=== PATIENT | male | born 1980 | race Two or more races ===

== ENCOUNTER 2020-06-10 06:53 | Day surgery (SDC) | payer OTHER ==
[2020-06-10] VITALS (8 sets, daily range): BP systolic 116–144; BP diastolic 72–88
[~2020-06-10] VITALS: Ht 177.8 cm; Wt 116.1 kg
[~2020-06-10 06:53] MED LIST: OMEPRAZOLE40 M1 ORAL; PROBIOTIC1 EAC2 PO
--- NOTE | 2020-06-10 07:10 | Short Stay Surgery H&P ---
History of Present Illness History of Present Illness Chief Complaint Abdominal and epigastric pains and heartburn HPI Yrn Green is a 40 year old male who was admitted on for Gerd/ abdominal pains Patient History Allergies: Coded Allergies: No Known Allergies (Unverified , 06/05/20) Past Surgeries: (1) History of ankle surgery (2) History of ventral hernia repair Medication History Scheduled Lactobacillus Acidophilus (Probiotic), 1 EACH PO DAILY, (Reported) Omeprazole (Omeprazole), 40 MG ORAL DAILY, (Reported) Review of Systems Cardiovascular: Reports: no symptoms Respiratory: Reports: no symptoms Skeletal: Reports: trauma Gastrointestinal: Reports: gastro esophageal reflux disease Genitourinary: Reports: no symptoms Neurologic: Reports: no symptoms Endocrine: Reports: no symptoms Hematologic: Reports: no symptoms Physical Exam Skin: normal HENT: normal Heart: normal Lungs: normal Abdomen: abnormal Extremities: normal Genitourinary: normal Plan Plan of Care Upper GI. endoscopy and biopsy Preop Interventions None. Summary of Findings See the reports Attestation Are the patient's medical conditions optimized for surgery? Attestation Response: yes Ami Belle MD Jun 10, 2020 07:10
--- NOTE | 2020-06-10 07:11 | Pre-Procedure Note/Attestation ---
Pre-Procedure Note/Attestation Complete Prior to Procedure Planned Procedure: left Procedure Narrative: Examination of the upper GI. tract via endoscopy and taking biopsy as needed. Indications for Procedure Pre-Operative Diagnosis: R/O Gastritis/peptic ulcer/esophagitis Attestation I attest that I discussed the nature of the procedure; its benefits; risks and complications; and alternatives (and the risks and benefits of such alternatives), prior to the procedure, with the patient (or the patient's legal outside sales representative insurance). I attest that, if there was a reasonable possibility of needing a blood transfusion, the patient (or the patient's legal outside sales representative insurance) was given the [place] [facility] [employer] [facility] standardized written summary, pursuant to the [place] Blood Safety Act ([place] Health and Safety Code # 1645, as amended). I attest that I re-evaluated the patient just prior to the surgery and that there has been no change in the patient's H&P, except as documented below: Ami Belle MD Jun 10, 2020 07:11
--- NOTE | 2020-06-10 07:12 | Discharge Instructions ---
Discharge Instructions Discharge Instructions Follow up with: make appointment to see the doctor after 2 weeks For Congestive Heart Failure Reminder Report to your physician any weight gain of 5 pounds or more in one week. Ami Belle MD Jun 10, 2020 07:12
[2020-06-10] MEDS ORDERED: LR 1000ml 1,000 ML IVLG SCH (07:30)
[2020-06-10] MEDS ORDERED: Midazolam 2mg/2ml Inj IVP PRN (07:30)
[2020-06-10] MEDS ORDERED: Atropine Inj 1mg/10ml Syr IVP PRN (07:30)
[2020-06-10] MEDS ORDERED: DiphenhydrAMINE 50mg/ml Inj IVP PRN (07:30)
[2020-06-10] MEDS ORDERED: fentaNYL 100 mcg/2 mL IV PRN (07:30)
--- NOTE | 2020-06-10 07:30 | Anethesia Preoperative Eval ---
Anesthesia Pre-op PMH/ROS General Date of Evaluation: Jun 10, 2020 Time of Evaluation: 07:27 Anesthesiologist: becky ASA Score: ASA 3 Mallampati Score Class I : Soft palate, uvula, fauces, pillars visible Class II: Soft palate, uvula, fauces visible Class III: Soft palate, base of uvula visible Class IV: Only hard plate visible Mallampati Classification: Class II Surgeon: chrissy Diagnosis: gerd, ibs Surgical Procedure: egd Anesthesia History: none Social History: smoking - nonsmoker Family History: no anesthesia problems Allergies: Coded Allergies: No Known Allergies (Unverified , 06/05/20) Medications: see eMAR Patient NPO?: Yes Past Medical History Pulmonary: Reports: other - hx/o pneumonia, snores Gastrointestinal/Genitourinary: Reports: GERD, other - umbilical hernia, hiatal hernia, ibs Hematology/Immune: Reports: other - covid-19 nd 06/06/2020 Musculoskeletal/Integumentary: Reports: other - back pain Other: obesity PSxH Narrative: anklesurgery Anesthesia Pre-op Phys. Exam Physician Exam Last Vital Signs Date Time Temp Pulse Resp B/P (MAP) Pulse Ox O2 Delivery O2 Flow Rate FiO2 06/10/20 07:22 97.3 50 18 135/88 97 Room Air Constitutional: NAD Neurologic: CN 2-12 intact Cardiovascular: RRR Respiratory: CTA Gastrointestinal: S/NT/ND Airway Exam Mallampati Score: Class II MO: limited Neck: flexible TMD: 2fb ROM: limited Teeth: other - bridged tooth upper Anesthesia Pre-op A/P Labs Microbiology Date/Time Source Procedure Growth Status 06/06/20 09:30 Nasopharynx Coronavirus COVID-19 PCR ([facility]) - Final Complete Risk Assessment & Plan Assessment: asa3 Plan: mac Status Change Before Surgery: No Pre-Antibiotics Drug: Amparo Gimenez MD Jun 10, 2020 07:30
[2020-06-10] MEDS ORDERED: Lidocaine 1% MPF 10mg/ml 5ml ONE (08:00)
[2020-06-10] MEDS ORDERED: LR 1000ml ONE (08:00)
--- NOTE | 2020-06-10 08:12 | Endoscopy Procedure Note ---
Endoscopy Procedure Note General Indication for Procedure: Abdomina/epigastrioc pains and GERDs Procedures Performed: EGD - Small hiatal hernia; otherwise normal upper GI. endiscopy. Biopsies obtained from antrum and gastric body. Specimen: yes Pt Tolerated Procedure Well: Yes Anesthesia Anesthesiologist: Dr. pena Anesthesia: moderate sedation Inserted Devices Implant(s) used?: No Quality Quality of Bowel Preparation: Excellent Was there any complications?: No GI Core Measures 50 yrs or older w/o bx or poly: Not Applicable 10yrs. F/U recommended: Not Applicable If not recommended, why?: Med reason:<3 yrs.: System Reason:<3 yrs.: Ami Belle MD Jun 10, 2020 08:12
--- NOTE | 2020-06-10 09:14 | Operative Note - Dictated ---
DATE OF OPERATION: 06/10/2020 SURGEON: Ami Belle MD PROCEDURE: Esophagogastroduodenoscopy with biopsy. PREOPERATIVE DIAGNOSES: Abdominal pain, epigastric pain, history of chronic gastroesophageal reflux, rule out peptic ulcer disease, gastritis, esophagitis. POSTOPERATIVE DIAGNOSIS: Small hiatal hernia, otherwise completely normal upper GI endoscopy. Biopsies were taken per random from antrum and gastric body. MEDICATION USED: Per Dr. Ross, anesthesiologist. INSTRUMENT: GIF Olympus upper GI video endoscope. DESCRIPTION OF PROCEDURE: Patient after arriving in the endoscopy unit was told about risks and benefits of the procedure, which he accepted and signed informed consent. He was then put on the left lateral decubitus position. After adequate IV sedation, the scope was gently passed through the cricopharyngeal area, was lodged in the upper esophagus and gradually advanced towards gastroesophageal junction. The entire length of esophagus was completely normal without any evidence of pathology such as ulcers, strictures, varices, etc. GE junction also looked completely normal without presence of any Verma's mucosa. However, there was evidence of small hiatal hernia, which was not significant and there was no any ulceration in the area either. Subsequently, the scope was advanced into the stomach. Gastric cavity was distended completely with insufflation of air. Gradually, the areas of the fundus and the body and the antrum were examined. They looked completely normal. The mucosal lining was normal without any evidence of gastritis, peptic ulcer disease, polyps, or tumors etc. No bleeding sites noted. At this time, a retroflexion maneuver was applied and the area of the gastroesophageal junction was examined, which also revealed normal findings. One biopsy from gastric body and subsequently another 1 from antrum was obtained and subsequently scope was passed through the pyloric area. First and second portion of duodenum were found to be completely normal. At this time, the scope was pulled out and the procedure was terminated. Patient tolerated the procedure well and left the endoscopy room in a good condition. Ami Belle M.D. DR: HUBERT JOB#: [id number] CC:
--- NOTE | 2020-06-10 09:47 | Immediate Post-Op Evaluation ---
Immediate Post-Op Evalulation Immediate Post-Op Evalulation Procedure: egd w/bx Date of Evaluation: Jun 10, 2020 Time of Evaluation: 08:35 IV Fluids: 350ml lr Blood Products: none Estimated Blood Loss: negligible Blood Pressure Systolic: 144 Blood Pressure Diastolic: 76 Pulse Rate: 72 Respiratory Rate: 18 O2 Sat by Pulse Oximetry: 96 Temperature (Fahrenheit): 98.0 Pain Score (1-10): 0 Nausea: No Vomiting: No Complications none Patient Status: awake, reacts, patent Hydration Status: adequate Drug: Amparo Gimenez MD Jun 10, 2020 09:47
--- NOTE | 2020-06-10 09:48 | 48 Hour Post Anesthesia Eval ---
Post Anesthesia Evaluation Procedure: egd w/bx Date of Evaluation: Jun 10, 2020 Time of Evaluation: 08:37 Blood Pressure Systolic: 122 0: 77 Pulse Rate: 64 Respiratory Rate: 18 Temperature (Fahrenheit): 98.0 O2 Sat by Pulse Oximetry: 100 Airway: patent Nausea: No Vomiting: No Pain Intensity: 0 Hydration Status: adequate Cardiopulmonary Status: stable Mental Status/LOC: patient returned to baseline Post-Anesthesia Complications: none Follow-up care needed: N/A Amparo Rinaldi MD Jun 10, 2020 09:48
== END 2020-06-10 09:15 | disposition home or self-care (01) ==
LOC: GAS 06:53
DX: K44.9 Diaphragmatic hernia without obstruction or gangrene (principal); K21.9 Gastro-esophageal reflux disease without esophagitis; E66.9 Obesity, unspecified; Z86.16 Personal history of COVID-19; Z68.36 Body mass index [BMI] 36.0-36.9, adult
CPT/HCPCS: 43239; 94003; J2704; J7120; U0004; 94150